=== PATIENT | female | born 1940 | race Caucasian/White ===

== ENCOUNTER → 2017-10-13 | Outpatient (CLI) | payer MEDICARE, OTHER ==
--- NOTE | 2017-10-13 10:26 | RADIOLOGY IMAGING REPORT ---
FACILITY: [facility] PATIENT NAME: Susanne Hernandez : 1940 MR: [id number] V: [id number] EXAM DATE: ORDERING PHYSICIAN: PAYAM CALDWELL TECHNOLOGIST: Location: [facility] [place] Patient: Susanne Hernandez : 1940 Visit/Account:[id number] Date of Sevice: 10/13/2017 CHEST PA AND LAT COMPARISONS: None. ADDITIONAL PERTINENT HISTORY: No current chest complaints. FINDINGS: Cardiomediastinal silhouette: Negative. Pulmonary vasculature: Mild atherosclerotic disease of the thoracic aortic arch. Lung samayoa: Minimal bibasilar regions of scarring. Otherwise negative Pleural spaces: Negative. Osseous structures: Mild spondylitic change involving the thoracic spine. Surrounding soft tissues: Moderate sized hiatal hernia. IMPRESSION: 1. Moderate-sized hiatal hernia. 2. No evidence of acute cardiopulmonary disease. Report Dictated By: Thierno Persaud MD at 10/13/2017 10:21 AM Report E-Signed By: Thierno Persaud MD at 10/13/2017 10:22 AM WSN:[email or web address]
== END ==
LOC: RAD 09:44
PROVIDERS: ATTEND Family Medicine
DX: K44.9 Diaphragmatic hernia without obstruction or gangrene (principal)
CPT/HCPCS: 71046

== ENCOUNTER → 2017-10-17 | Outpatient (CLI) | payer MEDICARE, OTHER ==
[~2017-10-17] MED LIST: BARIUM SULFATE 176 GM BTL PO ONE; BARIUM SULFATE 340 GM POWD ONE
--- NOTE | 2017-10-17 13:50 | RADIOLOGY IMAGING REPORT ---
FACILITY: [facility] PATIENT NAME: Susanne Hernandez : 1940 MR: [id number] V: [id number] EXAM DATE: ORDERING PHYSICIAN: PAYAM CALDWELL TECHNOLOGIST: Location: [facility] Patient: Susanne Hernandez : 1940 Visit/Account:[id number] Date of Sevice: 10/17/2017 Exam type: UPPER GI SERIES W/O AIR History: GERD Comparison: None. Findings: The patient was given a barium suspension to swallow. Esophagus was not well-distended as the patien t had difficulty swallowing the bolus of barium. Tertiary waves of the esophagus are present. There is a moderate to large hiatal hernia. There appear to be mild to moderate narrowing of the distal e sophagus which could be related to inadequate distention of the esophagus. The patient was given a 1 2 mm barium tablet which did pass into the stomach. Gastro-esophageal reflux was not demonstrated no abnormality of the stomach duodenal bulb or duodenal C-loop was seen other than the previously noted hiatal hernia. The fluoroscopy dose area product was 1178.17 micro-Arriaga per meter squared IMPRESSION: 1. Moderate to large hiatal hernia however gastric soft reflux could not be demonstrated during the examination. Tertiary waves esophagus were present. There appear to be mild to moderate narrowing a t the distal esophagus which could be related to an inadequate distention of the esophagus as the pat ient had a difficult time swallowing the barium. A 12 mm barium tablet did pass into the stomach. G iven the clinical history of GERD and presence of a moderate to large hiatal hernia and inability of the patient to distend her esophagus with barium endoscopy may be helpful Report Dictated By: Norah Blum MD at 10/17/2017 1:40 PM Report E-Signed By: Norah Blum MD at 10/17/2017 1:45 PM WSN:KOLTON
== END ==
LOC: RAD 04:10
PROVIDERS: ATTEND Family Medicine
DX: K44.9 Diaphragmatic hernia without obstruction or gangrene (principal)
CPT/HCPCS: 74240

== ENCOUNTER → 2018-03-25 | Outpatient (CLI) | payer MEDICARE, OTHER ==
--- NOTE | 2018-03-25 14:39 | RADIOLOGY IMAGING REPORT ---
FACILITY: [facility] PATIENT NAME: Susanne Hernandez : 1940 MR: [id number] V: [id number] EXAM DATE: ORDERING PHYSICIAN: PAYAM CALDWELL TECHNOLOGIST: Location: [facility] - [place] Patient: Susanne Hernandez : 1940 Visit/Account:[id number] Date of Sevice: 03/25/2018 DEXA Scan Clinical history: Osteopenia. Comparison: DEXA scan from 07/03/2015. LUMBAR SPINE: The bone mineral density (BMD) measured from L1-L4 correlates with a Z-score of -0.1 and a T-score of -1.4 which is osteopenia as defined by the World Health Organization. The corresponding risk of fra cture in the lumbar spine is to 3 times increased compared with a young adult reference population. This value has increased by 3.2 % since the prior study. More than 5% change is considered significa nt. HIP: Bone mineral density (BMD) measured in the LEFT total hip region correlates with a Z-score -0.5 and a T-score of -2 which is osteopenia as defined by the World Health Organization. The corresponding ri sk of fracture in the hip is 4 times increased compared to a young adult reference population. This v alue has increase by 1.8 % since the prior study. More than 5% change is considered significant. T score left femoral neck -2.3 Bone mineral density (BMD) measured in the Femoral Neck region measures 0.721 g/cm?. IMPRESSION: 1. Lumbar spine: Osteopenia. There has been 3.2% increase in the bone mineral density since the pre vious exam. 2. Left Total Hip: Osteopenia. There has been 1.8% increase in the bone mineral density since the p revious exam. 3. Femoral Neck: Bone Mineral Density is 0.721 g/cm? The next DEXA scan of this patient should include the following sites: L1-L4 and the left hip. FRAX? WHO Fracture Risk Assessment Tool link: <http://www.shef.ac.uk/FRAX/tool.jsp?locationValue=9> PLEASE NOTE: 1) The World Health Organization defines low BMD as follows: T-score Normal > -1 Osteopenia < -1 and > -2.5 Osteoporosis < -2.5 without fractures Established osteoporosis < -2.5 with fractures 2) In general, you may wish to consider: Diagnosis Treatment Follow-up DEXA Normal BMD Prevention 2-3 years Osteopenia Prevention/therapy 1-2 years Osteoporosis Therapy Yearly 3) Fracture risk estimated from the T-score is more accurate for vertebral fractures (often spontane ous) than for hip fractures. Report Dictated By: Norah Blum MD at 03/25/2018 2:34 PM Report E-Signed By: Norah Blum MD at 03/25/2018 2:36 PM DYLANN:[email or web address]
== END ==
LOC: RAD 07:06
PROVIDERS: ATTEND Family Medicine
DX: M85.88 Other specified disorders of bone density and structure, other site (principal)
CPT/HCPCS: 77080

== ENCOUNTER 2018-05-29 03:48 | Day surgery (SDC) | payer MEDICARE, OTHER ==
[~2018-05-29] VITALS: Ht 157.5 cm; Wt 80.3 kg
[~2018-05-29 03:48] MED LIST changes: -BARIUM SULFATE 176 GM BTL PO ONE; -BARIUM SULFATE 340 GM POWD ONE; +CHOL10005 PO; +GOLYTE PO; +MAGN250T34 PO; +METF-450 PO; +MULT1TAB64 PO; +QUIN40TA24 PO; +TRIA1CAP85 PO; +formula 303 PO
[2018-05-29 06:14] VITALS: BP 192/98
[2018-05-29] MEDS ORDERED: NORMOSOL R SOLN(*) 1000 ML BAG 1,000 ML IV PRN (06:30)
[2018-05-29] MEDS ORDERED: LIDOCAINE/SOD BICARB 8.4% SYR ID ONE (06:30)
[2018-05-29] MEDS ORDERED: PROPOFOL(*)1000 MG/100 ML VIAL 100 ML ONE (08:35)
[2018-05-29 08:40] VITALS: BP 132/67
--- NOTE | 2018-05-29 08:48 | Short(Outpt) Discharge Summary ---
Discharge Summary Reason for Hosp/Final Diag: (1) Dysphagia Status: Chronic Hospital Course & Plan: EGD with esophageal dilation and biopsies completed without problems. (2) Positive colorectal cancer screening using Cologuard test Status: Chronic Hospital Course & Plan: Colonoscopy with polypectomy x6 completed without problems. Departure Discharge to: Home, Self Care Discharge Instructions Home Meds Reported Medications [formula 303] No Conflict Check, PO DAILY 05/22/18 Magnesium Oxide (MAGNESIUM) 250 Mg Tablet, PO DAILY 05/22/18 Multivitamin (MULTI VITAMIN DAILY) 1 Each Tablet, 1 EACH PO DAILY 05/20/18 Cholecalciferol (Vitamin D3) (VITAMIN D3) 1,000 Unit Tablet, 1000 UNIT PO BID, TAB 05/20/18 Metformin Hcl (METFORMIN HCL) Unknown Strength Tablet, 500 MG PO QDAY, TAB 05/20/18 Triamterene/Hydrochlorothiazid (TRIAMTERENE-HCTZ 37.5-25 MG CP) 1 Each Capsule, 0.5 EACH PO DAILY, CAPSULE 05/20/18 Quinapril Hcl (ACCUPRIL) 40 Mg Tablet, 40 MG PO QDAY 05/20/18 Diet: Regular Activity: As Tolerated Special Instructions: Your EGD and colonoscopy were completed without any problems and your prep was excellent (Good Job!!). I took biopsies from your esophagus and duodenum and dilated your esophagus. I removed 6 polyps from your colon including a larger polyp. Nothing looked cancerous but is probably precancerous. These were all sent to pathology. My office will call you in the next couple of days to schedule a follow up appointment to see me back to discuss these results with you. Problem Qualifiers (1) Dysphagia: Dysphagia type: esophageal phase Qualified Codes: R13.10 - Dysphagia, unspecified NATALIA HANDY MD May 29, 2018 08:48
[2018-05-29 09:00] VITALS: BP 134/75
[2018-05-29 09:15] VITALS: BP 165/74
[2018-05-29 09:20] VITALS: BP 171/89
[2018-05-29 09:25] VITALS: BP 180/109
== END 2018-05-29 09:42 | disposition home or self-care (01) ==
LOC: OR 03:48
PROVIDERS: ATTEND Surgery
DX: Z12.11 Encounter for screening for malignant neoplasm of colon (principal); D12.0 Benign neoplasm of cecum; K63.5 Polyp of colon; K62.1 Rectal polyp; K22.719 Barrett's esophagus with dysplasia, unspecified; K44.9 Diaphragmatic hernia without obstruction or gangrene; E11.9 Type 2 diabetes mellitus without complications; I10 Essential (primary) hypertension
CPT/HCPCS: 00811; 36416; 43239; 43248; 45380; 45385; 82948; 88305; C1769; J2704

== ENCOUNTER → 2019-04-12 | Outpatient (CLI) | payer MEDICARE, OTHER ==
[~2019-04-12] MED LIST changes: +FAMO-67 PO
--- NOTE | 2019-04-12 13:29 | RADIOLOGY IMAGING REPORT ---
FACILITY: [facility] PATIENT NAME: Susanne Hernandez : 1940 MR: [id number] V: [id number] EXAM DATE: ORDERING PHYSICIAN: PAYAM CALDWELL TECHNOLOGIST: Location: [facility] - [place] Patient: Susanne Hernandez : 1940 Visit/Account:[id number] Date of Sevice: 04/12/2019 Exam type: L-SPINE 2 OR 3 VIEW History: Low back pain Comparison: None. Findings: There are five nonrib-bearing lumbar-type vertebral bodies present. There is a 1 cm anterior subluxa tion of L4 with respect L5. There is also severe disc space narrowing at this level with sclerosis o f the adjacent endplates. This mild disc space narrowing at L5-S1 at T12-L1 and L1-L2. Spondylotic changes also identified in the visualized portion the lower thoracic spine. There are severe degener ative changes of both hip joints IMPRESSION: 1. 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
--- NOTE | 2019-04-12 13:30 | RADIOLOGY IMAGING REPORT ---
FACILITY: [facility] [place] PATIENT NAME: Susanne Hernandez : 1940 MR: [id number] V: [id number] EXAM DATE: ORDERING PHYSICIAN: PAYAM CALDWELL TECHNOLOGIST: Location: [facility] Patient: Susanne Hernandez : 1940 Visit/Account:[id number] Date of Sevice: 04/12/2019 Exam type: KNEE 3 VIEW LEFT History: Left knee pain Comparison: None. Findings: Three views were submitted. There is moderate to severe narrowing of the medial compartment of the l eft knee with marginal spurring. There is beaking of the tibial spines. There are moderate degenera tive changes at the patellofemoral joint. There is a Sundeep-Stieda type calcification just media l to the medial femoral condyle IMPRESSION: 1. Moderate to severe narrowing of the medial compartment of the left knee with marginal spurring Moderate degenerative changes of the patellofemoral compartment Report Dictated By: Norah Blum MD at 04/12/2019 1:20 PM Report E-Signed By: Norah Blum MD at 04/12/2019 1:21 PM WSN:[email or web address]
== END ==
LOC: RAD 10:30
PROVIDERS: ATTEND Family Medicine
DX: M22.2X2 Patellofemoral disorders, left knee (principal); S33.140A Subluxation of L4/L5 lumbar vertebra, initial encounter; M47.815 Spondylosis without myelopathy or radiculopathy, thoracolumbar region; M16.0 Bilateral primary osteoarthritis of hip
CPT/HCPCS: 72100